=== PATIENT | female | born 1955 ===

== ENCOUNTER 2017-07-12 06:56 | Day surgery (SDC) | payer MEDICAID ==
[2017-07-12 07:42] VITALS: BMI 24.4
[2017-07-12 07:49] VITALS: RESP 18
[2017-07-12] MEDS ORDERED: Gadodiamide 287 MG/ML VIAL (15ML) IV ONE (07:56)
[2017-07-12] MEDS ORDERED: Propofol 10 mg/ml Inj (20 ML) ONE ×2 (08:16→09:19)
[2017-07-12] MEDS ORDERED: Midazolam 5 MG/ML ONE (08:16)
[2017-07-12 08:36] VITALS: PULSE 70
[2017-07-12] MEDS ORDERED: Sodium Chloride 0.9% 1,000 ML IV SCH (09:45)
[2017-07-12 10:45] VITALS: BP 142/75; TEMP 97.5; O2SAT 100
--- NOTE | 2017-07-12 14:38 | MRI ---
PROCEDURE: MR LUMBAR SPINE WITH AND WITHOUT CONTRAST HISTORY: M [age] COMPARISON: 04/09/2016 TECHNIQUE: Multiecho multiplanar sequences were performed through the lumbar spine with and without the use of intravenous contrast. 15 cc of Omniscan FINDINGS: Normal lumbar lordosis. Vertebral body heights are preserved. Marrow signal unremarkable. Conus medullaris unremarkable at the level of T12 Paraspinal soft tissues are unremarkable. No abnormal enhancement. T12-L1: No disc herniation, spinal canal stenosis or neural foraminal narrowing. L1-2: No disc herniation, spinal canal stenosis or neural foraminal narrowing. L2-3: No disc herniation, spinal canal stenosis or neural foraminal narrowing. L3-4: There is a moderate disc bulge left greater than right L4-5: There is a moderate disc bulge left greater than right L5-S1: No disc herniation, spinal canal stenosis or neural foraminal narrowing. Moderate facet arthropathy OTHER FINDINGS: Scoliosis convex to the left with a Muñoz angle of 19 degrees IMPRESSION: Scoliosis convex to the left. Disc degeneration with moderate disc bulging left greater than right at L3-4 and L4-5.
== END 2017-07-12 11:20 | disposition home or self-care (01) ==
LOC: H.OPSURG 06:56 → EDSTATUS 07:30 → H.OPSURG 11:20
PROVIDERS: ATTEND Physical Medicine & Rehabilitation
DX: M54.5 Low back pain (principal)
CPT/HCPCS: 72158; A9579; J2250; J2704; J7040